=== PATIENT | female | born 1965 | race Hispanic/Latino ===

== ENCOUNTER 2024-04-27 19:49 | Emergency (ER) | payer OTHER ==
[~2024-04-27] VITALS: Ht 154.9 cm; Wt 79.4 kg
[2024-04-27 19:53] VITALS: PULSE 74; RESP 18; TEMP 98.2
[2024-04-27] MEDS ORDERED: KETOROLAC TROMETHAMINE 60 MG/2 ML VIAL ONE (19:59)
[2024-04-27] MEDS: KETOROLAC TROMETHAMINE 60 MG/2 ML VIAL IM ONE (20:07)
[2024-04-27 20:26] LABS: BACTERIA,URINE MODERATE /HPF; BILIRUBIN,URINE NEGATIVE (NEGATIVE); CLARITY,URINE CLEAR (CLEAR); COLOR,URINE YELLOW (YELLOW); EPITHELIAL CELLS,URINE MANY /LPF; GLUCOSE, URINE NEGATIVE (NEGATIVE); KETONES,URINE NEGATIVE (NEGATIVE); LEUKOCYTE ESTERASE ,URINE NEGATIVE (NEGATIVE); NITRITE,URINE NEGATIVE (NEGATIVE); PH,URINE 7 (5 - 7); PROTEIN,URINE DIPSTICK NEGATIVE (NEGATIVE); URINE UROBILINOGEN 0.2 mg/dL (0.2 - 1); WBC,URINE (MAN) 0-5 /HPF (0-5)
[2024-04-27 22:22] VITALS: BP 136/82; PULSE 67; RESP 18; TEMP 98.2; O2SAT 98
== END 2024-04-27 22:20 | disposition home or self-care (01) ==
LOC: ER 19:54
DX: R10.32 Left lower quadrant pain (principal); R30.0 Dysuria; R31.29 Other microscopic hematuria; H92.01 Otalgia, right ear; E03.9 Hypothyroidism, unspecified
CPT/HCPCS: 74176; 81001; 99283; J1885

== ENCOUNTER 2024-12-01 15:50 | Emergency (ER) | payer OTHER ==
[~2024-12-01] VITALS: Ht 154.9 cm; Wt 79.4 kg
[2024-12-01] MEDS: SODIUM CHLORIDE 0.9% 1000ML 1,000 ML IV STA (16:55)
[2024-12-01] MEDS: KETOROLAC TROMETHAMINE 30 MG/ML VIAL IV STA (16:55)
[2024-12-01 16:59] LABS: BASOPHILS % 0.5 % (0.0-1.0); EOSINOPHILS % 0.8 % (0.0-6.0); LYMPHOCYTES % 48.6 % (18.0-39.1); MONOCYTES % 9.6 % (4.4-11.3); NEUTROPHILS % 40.3 % (38.7-80.0); RED CELL DISTRIBUTION WIDTH 12.5 % (11.7-14.4)
[2024-12-01 17:25] LABS: EST GLOMERULAR FILTRATION RATE 101 ML/MIN (>=60)
[2024-12-01 17:30] LABS: INR 0.95
[2024-12-01 17:47] VITALS: PULSE 72; RESP 20; TEMP 98
[2024-12-01 18:27] VITALS: BP 112/60; PULSE 77; RESP 16; TEMP 98.5; O2SAT 98
== END 2024-12-01 18:29 | disposition home or self-care (01) ==
LOC: ER 16:20
DX: R07.89 Other chest pain (principal); M79.18 Myalgia, other site; E03.9 Hypothyroidism, unspecified; Z88.2 Allergy status to sulfonamides
CPT/HCPCS: 36415; 71045; 80053; 84484; 85025; 85379; 85610; 85730; 93005; 99284; J1885; J7030